=== PATIENT | male | born 1960 | race Caucasian/White ===

== ENCOUNTER 2023-08-27 08:31 | Day surgery (SDC) | payer MEDICARE, OTHER ==
[~2023-08-27] VITALS: Ht 170.2 cm; Wt 77.3 kg
[~2023-08-27 08:31] MED LIST: DIAZ5TAB PO; HYDR-3565 PO; NIFE-34 PO
[2023-08-27] MEDS ORDERED: NIFE-72 PO (09:00)
[2023-08-27] MEDS ORDERED: ROSU10TA28 PO (09:01)
[2023-08-27] MEDS ORDERED: CHOL50002 PO (09:02)
[2023-08-27] MEDS ORDERED: MULT-1085 PO (09:02)
[2023-08-27] MEDS ORDERED: LACT1CAP65 PO (09:03)
[2023-08-27] MEDS ORDERED: ASCO125T PO (09:04)
[2023-08-27 09:22] VITALS: BP 141/85; PULSE 74; RESP 16
[2023-08-27] MEDS ORDERED: LIDOcaine 2% Viscous 15ml cup ONE (10:09)
[2023-08-27] MEDS ORDERED: diphenhydrAMINE 50 mg/ml inj ONE (10:12)
[2023-08-27] MEDS ORDERED: MIDAZolam 1 MG/ML 5ML VIAL ONE (10:12)
[2023-08-27] MEDS ORDERED: fentaNYL/PF 50MCG/1 ML 2ML syringe ONE (10:12)
[2023-08-27 11:14] VITALS: BP 122/72; PULSE 68; RESP 11; O2SAT 100
[2023-08-27 11:24] VITALS: BP 114/62; PULSE 66; RESP 12; O2SAT 100
[2023-08-27 11:34] VITALS: BP 109/64; PULSE 64; RESP 10; O2SAT 98
[2023-08-27 11:44] VITALS: BP 113/100; PULSE 62; RESP 14; O2SAT 100
== END 2023-08-27 11:55 | disposition home or self-care (01) ==
LOC: GI LAB 08:31
PROVIDERS: ATTEND Internal Medicine Gastroenterology
DX: K57.30 Diverticulosis of large intestine without perforation or abscess without bleeding (principal); K64.8 Other hemorrhoids; Z86.010 Personal history of colon polyps; K21.00 Gastro-esophageal reflux disease with esophagitis, without bleeding; K29.80 Duodenitis without bleeding; K31.89 Other diseases of stomach and duodenum
CPT/HCPCS: 43239; 45378; 99153; G0500; J2250; J3010; J7030; Z7512; 88305; 99152; A4620; J1200

== ENCOUNTER 2023-11-24 14:52 | Emergency (ER) | payer MEDICARE, OTHER ==
[~2023-11-24] VITALS: Ht 170.2 cm; Wt 77.3 kg
[~2023-11-24 14:52] MED LIST changes: +ASCO125T PO; +CHOL50002 PO; -DIAZ5TAB PO; -HYDR-3565 PO; +LACT1CAP65 PO; +MULT-1085 PO; -NIFE-34 PO; +NIFE-72 PO; +ROSU10TA72 PO
[2023-11-24] MEDS ORDERED: CEPH-585 PO (17:43)
[2023-11-24] MEDS ORDERED: SULF1TAB45 PO (17:43)
[2023-11-24 17:48] VITALS: BP 104/64; PULSE 85; TEMP 97.3; O2SAT 98
[2023-11-24 18:02] VITALS: RESP 18
== END 2023-11-24 18:28 | disposition home or self-care (01) ==
LOC: ER 14:52
DX: L03.317 Cellulitis of buttock (principal); I25.10 Atherosclerotic heart disease of native coronary artery without angina pectoris; Z88.6 Allergy status to analgesic agent; Z79.899 Other long term (current) drug therapy; Z79.2 Long term (current) use of antibiotics
CPT/HCPCS: 99283